=== PATIENT | female | born 1960 | race Caucasian/White ===

== ENCOUNTER → 2016-05-26 | Outpatient (CLI) | payer MEDICARE ==
[~2016-05-26] MED LIST: ALBU2.5V7 INH; ALBU8.5H INH; AMLO2.5T PO; AZIT250T PO; BECL8.7A6 INH; CHOL100018 PO; DEXL60CA9 PO; DICY10CA13 PO; LIPA1CAP21 PO; MAGN500C4 PO; MULT-1185 PO; OLAN10TA21 PO; RANO10003 PO; ROSU20TA PO; TIOT4MIS3 INH; TRAZ-173 PO; VITA40TA PO; ZOLP10TA6 PO; [UNRECOGNIZED DRUG - CODE] PO
--- NOTE | 2016-05-27 09:40 | DI ---
Indication: ITS.REASON: M25.571 RT ANKLE PAIN; M25.572 LT ANKLE PAIN PROCEDURE: ANKLE BILATERAL 3 VIEW: Encounter: Initial Comparison: None Findings: Left ankle: No acute fracture or dislocation. Joint spaces are normal. Right ankle: No acute fracture or dislocation. Joint spaces are normal. Orthopedic hardware in the distal third metatarsal, incompletely evaluated. Impression: Left ankle: No acute osseous abnormality or significant degenerative change. Right ankle: No acute osseous abnormality or significant degenerative change. .
--- NOTE | 2016-05-27 09:41 | DI ---
Indication: ITS.REASON: M79.605 LEFT LEG PAIN; M79.2 NEURALGIA/NEURITIS PROCEDURE: TIB-FIB LEFT 2 VIEW: Encounter: Initial Comparison: None Findings: There is no acute fracture, dislocation or malalignment identified. The tibiofibular syndesmosis appears normal without evidence of widening. Impression: No acute osseous abnormality. .
== END ==
LOC: IMA 16:19
PROVIDERS: ATTEND Internal Medicine
DX: M25.571 Pain in right ankle and joints of right foot (principal); M25.572 Pain in left ankle and joints of left foot; M79.605 Pain in left leg; R22.42 Localized swelling, mass and lump, left lower limb; M79.2 Neuralgia and neuritis, unspecified
CPT/HCPCS: 36415; 85379; 86140

== ENCOUNTER → 2016-06-15 | Outpatient (CLI) | payer MEDICARE ==
[2016-06-15 10:17] LABS: BASOPHILS % (AUTO) 0.3 % (0-2); EOSINOPHILS # (AUTO) 0.1 T/MM3 (0-0.5); EOSINOPHILS % (AUTO) 0.6 % (0-4); HCT - HEMATOCRIT 44.7 % (36-46); HGB - HEMOGLOBIN 14.9 GM/DL (12-16); IMMATURE GRANULOCYTE # (AUTO) 0.01 T/MM3 (0.00-0.03); IMMATURE GRANULOCYTE % (AUTO) 0.1 % (0.0-0.5); LYMPHOCYTES # (AUTO) 3.1 T/MM3 (1-4.8); MEAN CORPUSCULAR HGB 31.4 UUG (26-34); MEAN CORPUSCULAR HGB CONC(MCHC 33.3 GM/DL (31-37); MEAN CORPUSCULAR VOLUME 94.3 UM3 (80-100); MEAN PLATELET VOLUME 11.3 UM3 (9.4-12.4); MONOCYTES # (AUTO) 0.5 T/MM3 (0-0.8); MONOCYTES % (AUTO) 4.8 % (0-9.0); NEUTROPHILS #(AUTO)-ABSOLUTE 5.7 T/MM3 (1.8-7.7); NEUTROPHILS % (AUTO) 61.2 % (33-66); RED BLOOD COUNT 4.74 M/MM3 (4.00-5.20); WBC - WHITE BLOOD COUNT 9.4 T/MM3 (4.5-11.0)
[2016-06-15 10:31] LABS: ALBUMIN 4.6 G/DL (3.5-5.0); ALBUMIN/GLOBULIN RATIO 1.4 RATIO (1.1-2.2); ALKALINE PHOSPHATASE 87 U/L (38-126); ALT (SGPT) 59 U/L (9-52); ANION GAP 12 MEQ/L (5-15); AST (SGOT) 54 U/L (14-36); BUN/CREATININE RATIO 15 RATIO (6-26); CALCIUM 11.1 MG/DL (8.4-10.2); CHLORIDE 105 MEQ/L (98-107); CO2 - CARBON DIOXIDE 28 MEQ/L (22-30); CREATININE 1.1 MG/DL (0.7-1.2); GLOMERULAR FILTRATION RATE 52; GLUCOSE 108 MG/DL (65-110); LDH 457 U/L (313-618); POTASSIUM 4.9 MEQ/L (3.6-5); SODIUM 145 MEQ/L (134-144); TOTAL PROTEIN 7.8 G/DL (6.3-8.2)
== END ==
LOC: LAB 09:57
PROVIDERS: ATTEND Internal Medicine Hematology & Oncology
DX: D72.829 Elevated white blood cell count, unspecified (principal)
CPT/HCPCS: 36415; 80053; 83615; 85025

== ENCOUNTER → 2016-06-23 | Outpatient (CLI) | payer MEDICARE | LOC: NEU 13:11 | PROVIDERS: ATTEND Internal Medicine | DX: M54.18 Radiculopathy, sacral and sacrococcygeal region (principal); M79.605 Pain in left leg; M25.571 Pain in right ankle and joints of right foot; M25.572 Pain in left ankle and joints of left foot | CPT/HCPCS: 95886; 95910 ==

== ENCOUNTER → 2016-07-01 | Outpatient (CLI) | payer MEDICARE ==
[2016-07-01 09:13] LABS: BASOPHILS % (AUTO) 0.2 % (0-2); EOSINOPHILS % (AUTO) 0.2 % (0-4); HCT - HEMATOCRIT 42.9 % (36-46); HGB - HEMOGLOBIN 14.6 GM/DL (12-16); IMMATURE GRANULOCYTE # (AUTO) 0.01 T/MM3 (0.00-0.03); IMMATURE GRANULOCYTE % (AUTO) 0.1 % (0.0-0.5); LYMPHOCYTES % (AUTO) 24.7 % (23-45); MEAN CORPUSCULAR HGB 31.7 UUG (26-34); MEAN CORPUSCULAR VOLUME 93.1 UM3 (80-100); MEAN PLATELET VOLUME 11.1 UM3 (9.4-12.4); MONOCYTES # (AUTO) 0.6 T/MM3 (0-0.8); NEUTROPHILS #(AUTO)-ABSOLUTE 8.6 T/MM3 (1.8-7.7); NEUTROPHILS % (AUTO) 69.8 % (33-66); RED BLOOD COUNT 4.61 M/MM3 (4.00-5.20); WBC - WHITE BLOOD COUNT 12.3 T/MM3 (4.5-11.0)
[2016-07-01 09:21] LABS: BLOOD, URINE NEGATIVE (NEGATIVE); COLOR,URINE YELLOW (YELLOW); LEUKOCYTE ESTERASE ,URINE NEGATIVE (NEGATIVE); NITRITE,URINE NEGATIVE (NEGATIVE); UROBILINOGEN,URINE 0.2 EU/DL (NORMAL)
[2016-07-01 09:25] LABS: ALBUMIN 4.7 G/DL (3.5-5.0); ALBUMIN/GLOBULIN RATIO 1.5 RATIO (1.1-2.2); ALKALINE PHOSPHATASE 108 U/L (38-126); ALT (SGPT) 35 U/L (9-52); ANION GAP 13 MEQ/L (5-15); AST (SGOT) 25 U/L (14-36); BUN/CREATININE RATIO 23 RATIO (6-26); C-REACTIVE PROTEIN < 5.0 MG/L (0-9); CALCIUM 10.4 MG/DL (8.4-10.2); CHLORIDE 106 MEQ/L (98-107); CO2 - CARBON DIOXIDE 25 MEQ/L (22-30); CREATININE 0.9 MG/DL (0.7-1.2); GLOMERULAR FILTRATION RATE 65; GLUCOSE 97 MG/DL (65-110); POTASSIUM 4.3 MEQ/L (3.6-5); SODIUM 144 MEQ/L (134-144); TOTAL PROTEIN 7.9 G/DL (6.3-8.2)
[2016-07-01 09:53] LABS: THYROID STIM HORMONE-TSH 0.02 MIU/L (0.47-4.68)
[2016-07-02 02:54] LABS: HEPATITIS B SURFACE AG - BATCH NEGATIVE (NEGATIVE)
[2016-07-02 03:00] LABS: HEPATITIS A ANTIBODY IGM-BATCH NEGATIVE (NEGATIVE)
[2016-07-02 03:12] LABS: HEPATITIS C VIRUS AB-BATCH NEGATIVE (NEGATIVE)
== END ==
LOC: LAB 08:53
PROVIDERS: ATTEND Internal Medicine
DX: R74.8 Abnormal levels of other serum enzymes (principal); E83.52 Hypercalcemia; R10.9 Unspecified abdominal pain; M79.605 Pain in left leg; M79.2 Neuralgia and neuritis, unspecified; R22.42 Localized swelling, mass and lump, left lower limb; J44.9 Chronic obstructive pulmonary disease, unspecified; E03.9 Hypothyroidism, unspecified
CPT/HCPCS: 80053; 80061; 80074; 81003; 82248; 84443; 85025; 86140

== ENCOUNTER → 2016-07-13 | Outpatient (CLI) | payer MEDICARE ==
[2016-07-14 02:34] LABS: FREE T4 (FREE THYROXINE)-BATCH 1.12 NG/DL (0.78-2.19)
[2016-07-14 02:35] LABS: T3 FREE - BATCH 4.04 PG/ML (2.77-5.27)
== END ==
LOC: LAB 11:11
PROVIDERS: ATTEND Internal Medicine
DX: R51 Headache (principal); R20.2 Paresthesia of skin; E05.90 Thyrotoxicosis, unspecified without thyrotoxic crisis or storm; J32.9 Chronic sinusitis, unspecified
CPT/HCPCS: 36415; 84432; 84439; 84481; 86376; 86800